=== PATIENT | female | born 1940 | race African-American/Black ===

== ENCOUNTER 2022-09-09 10:31 | Inpatient (IN) | payer BC, MEDICAID, MEDICARE, OTHER ==
[~2022-09-09] VITALS: Ht 157.5 cm; Wt 85.6 kg
[2022-09-09 11:08] LABS: BASOPHILS % 0.8 % (0.0-2.0); EOSINOPHILS % 2.2 % (0.0-5.0); HEMATOCRIT. 41.9 % (36.0-48.0); HEMOGLOBIN. 13.8 g/dL (12.0-16.0); LYMPHOCYTES % 37.4 % (20.0-50.0); MEAN CORPUSCULAR VOLUME 94.4 fL (81.0-99.0); MONOCYTES % 4.8 % (2.0-8.0); NEUTROPHILS % 54.8 % (40.0-76.0); PLATELET 231 x1000/uL (130-400); RED BLOOD CELL COUNT 4.44 mill/uL (4.2-5.4)
[2022-09-09 12:21] LABS: CHLORIDE 105 mEq/L (98-107)
[2022-09-09 13:06] LABS: CLARITY URINE HAZY (CLEAR); COLOR URINE YELLOW (YELLOW); PROTEIN URINE TRACE (NEGATIVE); SPECIFIC GRAVITY URINE 1.021 (1.005-1.030)
[2022-09-09 13:07] LABS: KETONES URINE NEGATIVE (NEGATIVE); LEUKOCYTE ESTERASE URINE 1+ (NEGATIVE); NITRITE URINE NEGATIVE (NEGATIVE); OCCULT BLOOD URINE NEGATIVE (NEGATIVE); UROBILINOGEN URINE 0.2 E.U./dL (0.2-1.0)
[2022-09-09 13:52] LABS: PROTHROMBIN TIME 10.7 sec (9.6-11.0)
[2022-09-09 15:37] VITALS: BP 154/65
[2022-09-09 16:00] VITALS: BP 145/68
[2022-09-09] MEDS: SODIUM POLYSTYRENE SULFONATE 15 G/60 ML BOT PO NR ×2 (19:06→20:25)
[2022-09-09] MEDS ORDERED: DEXTROSE 50% WATER 50ML SYRINGE IV PRN (20:00)
[2022-09-09] MEDS ORDERED: DIPHENHYDRAMINE 50MG/ML VIAL IV PRN (20:00)
[2022-09-09] MEDS ORDERED: ZOLPIDEM TARTRATE 5MG TABLET PO PRN (20:00)
[2022-09-09] MEDS ORDERED: ONDANSETRON HCL 4MG/2ML INJ IV PRN (20:00)
[2022-09-09] MEDS ORDERED: ACETAMINOPHEN 325MG TABLET PO PRN ×2 (20:00)
[2022-09-09] MEDS: BLOOD SUGAR DIAGNOSTIC STRIP TEST SCH (20:15)
[2022-09-09] MEDS: INSULIN LISPRO 100 UNITS/ML SUBCUT SCH (20:23)
[2022-09-09] MEDS: SODIUM CHLORIDE 0.9% INJ 3ML FLUSH IVF SCH (20:24)
[2022-09-09 20:27] VITALS: BP 138/70
[2022-09-10 00:59] VITALS: BP 135/70
[2022-09-10 04:26] VITALS: BP 122/65
[2022-09-10] MEDS: SODIUM CHLORIDE 0.9% INJ 3ML FLUSH IVF SCH ×3 (05:17→21:42)
[2022-09-10] MEDS: BLOOD SUGAR DIAGNOSTIC STRIP TEST SCH ×4 (07:20→21:51)
[2022-09-10] MEDS: INSULIN LISPRO 100 UNITS/ML SUBCUT SCH ×4 (07:50→21:00)
[2022-09-10 08:00] VITALS: BP_SYST 105; BP_SYST 114; BP_DIAS 54; BP_DIAS 71
[2022-09-10 16:00] VITALS: BP 109/64
[2022-09-10] MEDS: ASPIRIN 81MG EC TABLET PO SCH (17:19)
[2022-09-10] MEDS ORDERED: VITAMIN B12 PO (18:28)
[2022-09-10] MEDS ORDERED: ASPI-1497 PO (18:28)
[2022-09-10] MEDS ORDERED: TOPUD PO (18:28)
[2022-09-10] MEDS ORDERED: ASCO-339 PO (18:28)
[2022-09-10] MEDS ORDERED: VIT E PO (18:28)
[2022-09-10] MEDS ORDERED: CALC-1249 PO (18:28)
[2022-09-10] MEDS ORDERED: LASIX PO (18:28)
[2022-09-10] MEDS ORDERED: GABA-529 PO (18:29)
[2022-09-10] MEDS ORDERED: ATOR10TA69 PO (18:29)
[2022-09-10] MEDS ORDERED: SENNA PO (18:32)
[2022-09-10 20:00] VITALS: BP_SYST 102; BP_SYST 114; BP_DIAS 62; BP_DIAS 70
[2022-09-10 21:05] LABS: BASOPHILS % 0.7 % (0.0-2.0); EOSINOPHILS % 1.2 % (0.0-5.0); HEMATOCRIT. 38.4 % (36.0-48.0); HEMOGLOBIN. 12.9 g/dL (12.0-16.0); MEAN CORPUSCULAR HEMOGLOBIN 31.3 pg (28.0-32.0); MEAN CORPUSCULAR VOLUME 93.1 fL (81.0-99.0); MEAN PLATELET VOLUME 7.2 fl (7.4-10.4); MONOCYTES % 6.9 % (2.0-8.0); NEUTROPHILS % 63.2 % (40.0-76.0); PLATELET 233 x1000/uL (130-400); RED BLOOD CELL COUNT 4.12 mill/uL (4.2-5.4); RED CELL DISTRIBUTION WIDTH 15.6 % (11.6-14.6)
[2022-09-10 21:06] LABS: CHLORIDE 101 mEq/L (98-107)
[2022-09-10] MEDS: ATORVASTATIN CALCIUM 10MG TABLET PO SCH (21:41)
[2022-09-11] VITALS: BP 124/57
[2022-09-11 04:00] VITALS: BP 134/86
[2022-09-11] MEDS: SODIUM CHLORIDE 0.9% INJ 3ML FLUSH IVF SCH ×3 (06:00→21:30)
[2022-09-11] MEDS: BLOOD SUGAR DIAGNOSTIC STRIP TEST SCH ×4 (06:21→21:00)
[2022-09-11] MEDS: INSULIN LISPRO 100 UNITS/ML SUBCUT SCH ×4 (06:21→21:00)
[2022-09-11 08:00] VITALS: BP 130/57
[2022-09-11 08:58] LABS: BASOPHILS % 1.1 % (0.0-2.0); EOSINOPHILS % 1.6 % (0.0-5.0); HEMATOCRIT. 36.7 % (36.0-48.0); HEMOGLOBIN. 12.3 g/dL (12.0-16.0); LYMPHOCYTES % 22.9 % (20.0-50.0); MEAN CORPUSCULAR HEMOGLOBIN 31.2 pg (28.0-32.0); MEAN CORPUSCULAR VOLUME 92.8 fL (81.0-99.0); MONOCYTES % 6.6 % (2.0-8.0); NEUTROPHILS % 67.8 % (40.0-76.0); RED BLOOD CELL COUNT 3.96 mill/uL (4.2-5.4); RED CELL DISTRIBUTION WIDTH 15.5 % (11.6-14.6)
[2022-09-11 09:16] LABS: CHLORIDE 103 mEq/L (98-107)
[2022-09-11] MEDS: SODIUM CHLORIDE 0.45% 1,000 ML IV SCH (12:03)
[2022-09-11] MEDS: ASPIRIN 81MG EC TABLET PO SCH (12:04)
[2022-09-11 12:08] LABS: MEAN PLATELET VOLUME 7.8 fl (7.4-10.4)
[2022-09-11 12:09] LABS: PLATELET 220 x1000/uL (130-400)
[2022-09-11] MEDS ORDERED: POTASSIUM CHLORIDE 20MEQ TABLET SR PO SCH (12:15)
[2022-09-11] MEDS ORDERED: MAGNESIUM 2 G PREMIX 50 ML IV SCH (12:15)
[2022-09-11 15:15] VITALS: BP 126/67
[2022-09-11 20:00] VITALS: BP_SYST 112; BP_SYST 140; BP_DIAS 62; BP_DIAS 70
[2022-09-11] MEDS: ATORVASTATIN CALCIUM 10MG TABLET PO SCH (21:29)
[2022-09-12] VITALS: BP 123/57
[2022-09-12] MEDS: SODIUM CHLORIDE 0.45% 1,000 ML IV SCH ×2 (03:49→17:16)
[2022-09-12 04:00] VITALS: BP 115/64
[2022-09-12] MEDS: SODIUM CHLORIDE 0.9% INJ 3ML FLUSH IVF SCH ×3 (05:32→21:21)
[2022-09-12] MEDS: BLOOD SUGAR DIAGNOSTIC STRIP TEST SCH ×4 (06:26→20:44)
[2022-09-12 06:31] LABS: BASOPHILS % 0.7 % (0.0-2.0); EOSINOPHILS % 2.6 % (0.0-5.0); HEMATOCRIT. 34.3 % (36.0-48.0); HEMOGLOBIN. 11.6 g/dL (12.0-16.0); LYMPHOCYTES % 31.1 % (20.0-50.0); MEAN CORPUSCULAR HEMOGLOBIN 31.6 pg (28.0-32.0); MEAN CORPUSCULAR VOLUME 93.4 fL (81.0-99.0); MEAN PLATELET VOLUME 7.2 fl (7.4-10.4); MONOCYTES % 6.9 % (2.0-8.0); NEUTROPHILS % 58.7 % (40.0-76.0); PLATELET 210 x1000/uL (130-400); RED BLOOD CELL COUNT 3.68 mill/uL (4.2-5.4); RED CELL DISTRIBUTION WIDTH 15.7 % (11.6-14.6)
[2022-09-12 06:35] LABS: CHLORIDE 108 mEq/L (98-107)
[2022-09-12] MEDS: INSULIN LISPRO 100 UNITS/ML SUBCUT SCH ×4 (06:42→20:44)
[2022-09-12 08:00] VITALS: BP 121/52
[2022-09-12] MEDS: ASPIRIN 81MG EC TABLET PO SCH (10:16)
[2022-09-12 12:00] VITALS: BP 145/59
[2022-09-12] MEDS ORDERED: POLYVINYL ALCOHOL OPHTH DROPS 15ML BOTHEYE PRN (12:00)
[2022-09-12 17:24] VITALS: BP 118/42
[2022-09-12] MEDS ORDERED: LACTULOSE 20G/30ML UDC PO NR (17:30)
[2022-09-12 20:00] VITALS: BP 135/79
[2022-09-12] MEDS: ATORVASTATIN CALCIUM 10MG TABLET PO SCH (21:16)
[2022-09-13] VITALS: BP 129/73
[2022-09-13 04:00] VITALS: BP 122/66
[2022-09-13] MEDS: SODIUM CHLORIDE 0.9% INJ 3ML FLUSH IVF SCH ×2 (05:30→13:25)
[2022-09-13] MEDS: BLOOD SUGAR DIAGNOSTIC STRIP TEST SCH ×3 (06:25→16:49)
[2022-09-13] MEDS: INSULIN LISPRO 100 UNITS/ML SUBCUT SCH ×3 (07:50→16:50)
[2022-09-13 08:23] VITALS: BP 116/78
[2022-09-13] MEDS: ASPIRIN 81MG EC TABLET PO SCH (08:39)
[2022-09-13 12:30] VITALS: BP 130/73
[2022-09-13 16:20] VITALS: BP 127/73
[2022-09-13 17:09] VITALS: BP 127/73
== END 2022-09-13 18:33 | disposition home or self-care (01) | DRG 74 ==
LOC: EDBD 10:31 → ER 12:32 → 6WST 13:41 → EDBEDREQTM 13:45 → EDBEDREQ 13:45 → ENRESERV 14:55
PROVIDERS: ADMIT Internal Medicine; ATTEND Internal Medicine
DX: G90.8 Other disorders of autonomic nervous system (principal); I95.1 Orthostatic hypotension; E78.5 Hyperlipidemia, unspecified; I25.10 Atherosclerotic heart disease of native coronary artery without angina pectoris; M19.90 Unspecified osteoarthritis, unspecified site; I49.3 Ventricular premature depolarization; E11.9 Type 2 diabetes mellitus without complications; E87.6 Hypokalemia; E83.42 Hypomagnesemia; I10 Essential (primary) hypertension; E87.5 Hyperkalemia; I08.1 Rheumatic disorders of both mitral and tricuspid valves; I27.20 Pulmonary hypertension, unspecified; Z88.8 Allergy status to other drugs, medicaments and biological substances; I25.2 Old myocardial infarction; Z90.49 Acquired absence of other specified parts of digestive tract; Z79.82 Long term (current) use of aspirin; Z95.5 Presence of coronary angioplasty implant and graft
CPT/HCPCS: 36415; 71045; 80048; 80053; 81003; 82962; 83036; 83605; 83735; 84145; 84443; 84484; 85025; 93005; 93306; 93880; 97161; 99285; C1893; J3475